=== PATIENT | male | born 1965 | race Two or more races ===

== ENCOUNTER 2019-07-17 06:25 | Day surgery (SDC) | payer OTHER ==
[~2019-07-17 06:25] MED LIST: ROZEREM8 MG PO; TRAZODONE HCL150 MG PO; VOLTAREN-XR100 MG PO
== END 2019-07-17 15:25 | disposition home or self-care (01) ==
LOC: CIR.AMB 06:25 → EDBD 10:15 → CIR.AMB 15:25
DX: M75.121 Complete rotator cuff tear or rupture of right shoulder, not specified as traumatic (principal); M75.21 Bicipital tendinitis, right shoulder; M19.011 Primary osteoarthritis, right shoulder